=== PATIENT | female | born 1990 | race Caucasian/White ===

== ENCOUNTER 2022-08-13 17:08 | Inpatient (IN) | payer BC, SELFPAY ==
[2022-08-13] VITALS (21 sets, daily range): BP systolic 127–183; BP diastolic 67–102; PULSE 82–111; RESP 16–18; TEMP 36.6–36.9; O2SAT 96–99; BMI 37.0
[2022-08-13] MEDS: LABETALOL HCL 5 MG/ML inj IVP ×2 (18:10→18:32)
[2022-08-13] MEDS: LACTATED RINGERS 1000 ML 1,000 ML 75 ML IV (18:10)
[2022-08-13 18:17] LABS: Hematocrit 32.2 % (33.0-51.0); Mean Corpuscular HGB Conc 31 gm/dL (32-36); Mean Corpuscular Hemoglobin 25 pg (26-34); Mean Corpuscular Volume 79 fL (80-100); Platelet Count* 280 K/uL (140-440); Red Blood Count 4.06 m/uL (4.00-5.20); White Blood Count* 8.71 K/uL (4.50-11.00)
--- NOTE | 2022-08-13 18:17 | PM.OBHPLI ---
OB - H&P: HPI Labor/Induction History of Present Illness Time Seen by Provider: 18:17 Date Seen: 08/13/22 Chief Complaint: The patient is a 31 year old 4 para 3 at 37 weeks gestation by 12 week ultrasound (LMP unknown), who presents with for IOL for gestational hypertension. She is a TOLAC, has had 1 successful in 3rd (2nd was for breech position). Chief complaint: Maternity : 4 Para: 3 Indications for induction: pre-eclampsia and maternal hypertension Narrative: Janette Banks is a 31 year old female who presents for IOL for gestational hypertension. She reports she has headache today that is unrelieved by tylenol. She is very anxious about the induction, vomited this afternoon. She has not required an induction in the past. She is really hoping to avoid epidural/spinal anesthesia. Patient has had vaginal delivery with Luis Eduardo (02/07/2009) (36 weeks) Patient had for breech positioning 01/01/2017 Candace Patient had successful on 12/18/2018 or Alfonzo (unmedicated delivery) calculator: Predicted chance of vaginal after : 88.2% 95% confidence interval: 86.4%, 89.8% ? ? ?She has prediabetes, passed 3 hour glucose tolerance test. Baby measuring 89% on 34 week scan. Patient has asthma, uses albuterol prn. History of Present Dating criteria: based on 1st trimester US only care: good care Ultrasounds: normal 1st trimester US and normal mid trimester US complications: preeclampsia Medical complications: respiratory (asthma) Labs Blood type: O (+) positive Rubella: immune RPR/VDLR: nonreactive GBS status: negative HBsAG: negative Review of Systems Const: Denies: fever Eyes: Denies: blurry vision Cardio: Denies: chest pain, edema or shortness of breath with exertion Resp: Denies: shortness of breath GI: Reports: nausea, vomiting and heartburn; Denies: diarrhea or constipation : Denies: painful urination Musculo: Denies: extremity swelling Integ/Breast: Denies: rash Neuro: Reports: headache Psych: Reports: anxiety Meds Home Medications and Allergies Home Medications Medication Instructions Recorded Confirmed Type albuterol sulfate 90 mcg/actuation 1 puff inhalation PRN 05/08/22 08/13/22 History aerosol inhaler cetirizine 10 mg tablet 10 mg PO QDAY 05/08/22 08/13/22 History fluticasone propionate 100 1 inh inhalation PRN 05/08/22 08/13/22 History mcg/actuation blister powder for inhalation (Flovent Diskus) ofloxacin 0.3 % eye drops 1 drp ophthalmic (eye) BID PRN 05/08/22 05/08/22 History [id number] fum 65 mg pkg PO DAILY 05/08/22 05/08/22 History iron-folic acid 1 mg-dha 250 mg oral yolanda Allergies Allergy/AdvReac Type Severity Reaction Status Date / Time No Known Drug Allergies Allergy Verified 05/08/22 13:49 OB - H&P: Exam Physical Exam: Vital signs: Pulse BP Pulse Ox 109 H 171/94 H 99 08/13/22 17:42 08/13/22 17:42 08/13/22 17:18 Constitutional: Constitutional: no acute distress and obese Routine HEENT Exam: Head: Present atraumatic and normal inspection Routine Neck Exam: Neck: Present full ROM Detailed Neck Exam: Thyroids: Thyroid: Present normal Routine Chest/Breast/Axilla Exam: Chest wall: Absent tenderness Routine Respiratory Exam: Respiratory: Present CTA bilaterally; Absent crackles or rales Routine Cardiovascular Exam: Cardiovascular: RRR, S1 and S2 Detailed Labor and Delivery Exam: Patient Gravid: Yes Dilation (cm): 2 Effacement (%): 30 Cervix position: posterior Consistency: medium Cervical ripeness score: 3 Contraction intensity: Moderate Fetus (Single): Station: -3 Amniotic Membrane Status: intact Heart Rate Baseline: 135 Monitor Accelerations: Present Monitor Decelerations: None Time Study Statistician Variability: Moderate (6-25) Routine Psychiatric Exam: Present anxious OB - Problem Based A/P Additional Plan (1) Pre-eclampsia, severe: Status: Acute Plan: Patient presented for planned IOL for gestataional hypertension. Patient has headache, BPs in severe range. Required labetalol x 2, magnesium infusion started. Q6H labs. (2) Hx of section: Status: Acute Plan: - history of successful with 3rd . - IOL started with cook catheter (60 and 60 cc placed) - Plan to start pitocin at 12:30 (3) Term : Status: Acute Plan: - will have peds at delivery for magnesium. Delivery/Labor/Induction Plan Plan: induction Induction method: Intracervical balloon catheter
[2022-08-13 18:22] LABS: Slide Review Reflex No
[2022-08-13 18:23] LABS: Aspartate Amino Transferase* 37 U/L (12-35); Creatinine* 0.5 mg/dL (0.5-1.5); Est. Creatinine Clearance* 119.25; Estimated Glomerular Filt Rate 130 ml/min
[2022-08-13 18:24] LABS: Alanine Aminotransferase* 22 U/L (4-35); Blood Urea Nitrogen* 12 mg/dL (5-24)
[2022-08-13] MEDS: MAGNESIUM IV 4 GM/100 ML PIGGYBACK IVPB (18:27)
[2022-08-13] MEDS: ACETAMINOPHEN 500 MG TABLET 1000 MG PO (18:34)
[2022-08-13 18:36] LABS: SARS PCR* Negative SARS-CoV-2 (Negative)
[2022-08-13] MEDS: ONDANSETRON 2 MG/ML inj 4 MG IV (18:36)
[2022-08-13 18:40] LABS: INR 0.91 (0.91-1.10); Prothrombin Time 12.8 Seconds
[2022-08-13 18:41] LABS: Partial Thromboplastin Time* 29 Seconds (23-33)
[2022-08-13 18:44] LABS: Fibrinogen* 589 mg/dL (200-450)
[2022-08-13 19:03] LABS: Total Protein Urine 11 mg/dL
[2022-08-13] MEDS: CALCIUM CARBONATE 500 MG CHEW PO (19:35)
[2022-08-13] MEDS: hydrOXYzine pamoate 25 MG CAPSULE 100 MG PO (21:12)
[2022-08-14] VITALS (39 sets, daily range): BP systolic 100–176; BP diastolic 57–101; PULSE 85–106; RESP 12–18; TEMP 36.6–37.4; O2SAT 93–96
[2022-08-14 00:26] LABS: Hematocrit 30.8 % (33.0-51.0); Hemoglobin* 9.8 gm/dL (12.0-16.0); Mean Corpuscular HGB Conc 32 gm/dL (32-36); Mean Corpuscular Hemoglobin 25 pg (26-34); Mean Corpuscular Volume 80 fL (80-100); Platelet Count* 255 K/uL (140-440); Red Blood Count 3.87 m/uL (4.00-5.20); White Blood Count* 9.14 K/uL (4.50-11.00)
[2022-08-14 00:28] LABS: Slide Review Reflex No
[2022-08-14] MEDS: OXYTOCIN 30 unit/500 ML in NS 30 UNIT/500 ML BAG IVPB (00:31)
[2022-08-14 00:45] LABS: Alanine Aminotransferase* 21 U/L (4-35); Aspartate Amino Transferase* 36 U/L (12-35); Blood Urea Nitrogen* 9 mg/dL (5-24); Creatinine* 0.5 mg/dL (0.5-1.5); Est. Creatinine Clearance* 119.25; Estimated Glomerular Filt Rate 130 ml/min
[2022-08-14] MEDS: ACETAMINOPHEN 500 MG TABLET 1000 MG PO ×3 (04:44→22:50)
[2022-08-14] MEDS: LACTATED RINGERS 1000 ML 1,000 ML 68 ML IV (06:29)
[2022-08-14 06:32] LABS: Hematocrit 30.6 % (33.0-51.0); Hemoglobin* 9.5 gm/dL (12.0-16.0); Mean Corpuscular HGB Conc 31 gm/dL (32-36); Mean Corpuscular Hemoglobin 25 pg (26-34); Mean Corpuscular Volume 80 fL (80-100); Platelet Count* 245 K/uL (140-440); Red Blood Count 3.83 m/uL (4.00-5.20); White Blood Count* 9.11 K/uL (4.50-11.00)
[2022-08-14 06:34] LABS: Slide Review Reflex No
[2022-08-14 06:50] LABS: Alanine Aminotransferase* 21 U/L (4-35); Aspartate Amino Transferase* 41 U/L (12-35); Blood Urea Nitrogen* 8 mg/dL (5-24)
--- NOTE | 2022-08-14 07:03 | PM.OBPNL ---
Subjective Time Seen by Provider: 07:03 Date Seen: 08/14/22 Narrative: Patient had cook catheter overnight, fell out at 0400. Pitocin was started at 0030. Doing well. Last check 5 cm. Has headache, some blurred vision in one eye. Feels nauseated with the magnesium. Objective Vital Signs: Last Vital Signs Temp 98.3 F 08/14/22 05:32 Pulse 96 08/14/22 06:18 Resp 16 08/14/22 05:32 BP 140/89 H 08/14/22 06:18 Pulse Ox 96 08/13/22 19:07 Pelvic Exam Dilation (cm): 5 Effacement (%): 50 Contractions Monitor mode: External Contraction Frequency: 2-5 Contraction pattern: Irregular Contraction intensity: Moderate Pitocin Rate (mU/min): 7 Assessment Assessment: induction ongoing Station: -3 Status: Category l Heart Rate Baseline: 135 Penitentiary Variability: Moderate (6-25) Monitor Accelerations: Present Monitor Decelerations: None Plan Plan: - continue IOL, pitocin increasing as able - Monitor blood pressures, continue magnesium, continue q6h labs. - hemoglobin 9.5. Monitor closely for post hemorrhage. Will have cytotec and pitocin ready. Limited by asthma and hypertension. may need to consider TXA.
[2022-08-14 07:20] LABS: Creatinine* 0.5 mg/dL (0.5-1.5); Est. Creatinine Clearance* 119.25; Estimated Glomerular Filt Rate 130 ml/min
--- NOTE | 2022-08-14 10:26 | P.OBPN_ITS ---
Subjective Time Seen by Provider: 10:26 Date Seen: 08/14/22 Narrative: Patient is progressing well on pitocin. Now 7 cm. I was called to bedside, [employer]ER Dr. English alerted, OR alerted, Peds alerted for TOLAC in active labor. Headache has resolved. Feels her vision is off in one eye, magnesium infusion continues. Labs reassuring. BPs not at treatable level today. Objective Exam: Appears uncomfortable during contractions. Vital Signs: Last Vital Signs Temp 98.4 F 08/14/22 09:38 Pulse 106 H 08/14/22 10:09 Resp 18 08/14/22 09:38 BP 144/83 H 08/14/22 10:09 Pulse Ox 96 08/13/22 19:07 Pelvic Exam Dilation (cm): 7 Effacement (%): 60 Station: -1 Comments: Per nursing exam Contractions Monitor mode: External Contraction pattern: Irregular Contraction intensity: Moderate Assessment Assessment: active labor and induction ongoing Station: -1 Status: Category l Heart Rate Baseline: 135 Monitor Accelerations: Present Monitor Decelerations: None Plan Plan: - continue pitocin as is - anticipate vaginal delivery - OR, OB, Peds aware given TOLAC in active labor - Peds aware for delivery as patient is on magnesium for preeclampsia with severe features - Monitoring blood pressures, not treatable range.
[2022-08-14] MEDS: LABETALOL HCL 5 MG/ML inj IVP ×2 (11:15→13:14)
[2022-08-14] MEDS: SODIUM CHLORIDE 0.9 % (FLUSH) 10 ML SYRINGE IVF ×2 (11:18→13:15)
--- NOTE | 2022-08-14 12:14 | W.PM.OBVAGDE ---
OB Procedure Vag Delivery Mother Details Mother Details: The patient is a 31 year-old, 4, Para 3, admitted on 08/13/22 at Days gestation for induction of labor for gestational hypertension. Unfortunately, she developed blood pressure with criteria for preeclampsia with severe features upon admission and magnesium was initiated. Patient had cook catheter, then pitocin and progressed well. We did AROM of large amount of clear fluid. She progressed well. Patient was involuntarily pushing at 8-9 cm. She was at 11:45 and delivered a viable male at 1148 quickly with one push. : 4 Para: 3 Weeks Gestation: 37.1 Admission Date: 08/13/22 Additional Details Amniotic Membrane Status: intact Amniotic Membrane Rupture Date: 08/14/22 Amniotic Membrane Rupture Time: 10:54 Amniotic Membrane Fluid Description: Clear Analgesia/Anesthesia Type: None Waterbirth: No Pitcoin: Yes Intrapartal Events: Labor Induction Induction Method: Intracervical balloon catheter, per pitocin protocol and AROM Labor Onset: 09:00 Complete: 11:45 Pushin:45 Heart: heart tones during second stage had deep variable decels with recovery. Delivery Details Delivery Date: 08/14/22 Delivery Time: 11:48 Route of delivery: Infant Gender: Male Infant Viability: Alive; Heart Rate Present Position at Delivery: OA Delivery Details: Delivered over intact perineum via spontaneous vaginal delivery after . was placed on maternal abdomen.? Nuchal cord was delivered through. Cord was clamped and cut after a 20-30 second delay. Nose and mouth were bulb suctioned.? 6 lbs 10 oz. Baby was taken to warmer for further stimulation and then returned to parents. Small 1st degree perineal laceration was repaired after administration of lidocaine with 1 figure 8 stitch. Patient had ongoing trickle of bleeding, so Cytotec was given rectally in addition to pitocin that was started immediately after delivery. EBL (drape was not in place due to precipitous delivery) was 75 mls. 1 Minute Interval Total Score: 7 5 Minute Interval Total Score: 9 Additional Details Shoulder Dystocia: No Placenta Delivery Time: 11:53 Placental Delivery Description: Spontaneous Delivery repair: Vicryl Procedure Done: Global Blood Loss: 75 Laceration: Perineal - 1st Degree Episiotomy Description: None Blood Loss Measurement Type: EBL Bakri Used: No Sponge/Need Count Correct: Yes Cord Vessel Description: 3 Vessels, Nuchal Cord and Delivered through Event Summary Status: Mother and were stable after delivery. Disposition: floor
[2022-08-14 13:14] LABS: Hematocrit 33.9 % (33.0-51.0); Hemoglobin* 10.6 gm/dL (12.0-16.0); Mean Corpuscular HGB Conc 31 gm/dL (32-36); Mean Corpuscular Hemoglobin 25 pg (26-34); Mean Corpuscular Volume 80 fL (80-100); Platelet Count* 272 K/uL (140-440); Red Blood Count 4.24 m/uL (4.00-5.20); White Blood Count* 11.29 K/uL (4.50-11.00)
[2022-08-14] MEDS: IBUPROFEN 600 MG TABLET PO ×2 (13:15→20:26)
[2022-08-14 13:16] LABS: Slide Review Reflex No
[2022-08-14 13:33] LABS: Aspartate Amino Transferase* 44 U/L (12-35); Creatinine* 0.6 mg/dL (0.5-1.5); Est. Creatinine Clearance* 99.37; Estimated Glomerular Filt Rate 125 ml/min
[2022-08-14 13:34] LABS: Alanine Aminotransferase* 24 U/L (4-35); Blood Urea Nitrogen* 7 mg/dL (5-24)
[2022-08-14 13:53] LABS: Magnesium* 5.5 mg/dL (1.5-2.6)
[2022-08-14 19:30] LABS: Hematocrit 27.3 % (33.0-51.0); Hemoglobin* 8.6 gm/dL (12.0-16.0); Mean Corpuscular HGB Conc 32 gm/dL (32-36); Mean Corpuscular Hemoglobin 25 pg (26-34); Mean Corpuscular Volume 80 fL (80-100); Platelet Count* 239 K/uL (140-440); Red Blood Count 3.42 m/uL (4.00-5.20); White Blood Count* 11.33 K/uL (4.50-11.00)
[2022-08-14 19:36] LABS: Slide Review Reflex No
[2022-08-14 19:45] LABS: Alanine Aminotransferase* 22 U/L (4-35); Aspartate Amino Transferase* 37 U/L (12-35); Blood Urea Nitrogen* 8 mg/dL (5-24); Creatinine* 0.6 mg/dL (0.5-1.5); Est. Creatinine Clearance* 99.37; Estimated Glomerular Filt Rate 125 ml/min
[2022-08-14 20:10] LABS: Magnesium* 5.7 mg/dL (1.5-2.6)
[2022-08-15] VITALS (9 sets, daily range): BP systolic 115–150; BP diastolic 76–99; PULSE 81–104; RESP 16–18; TEMP 36.4–36.9; O2SAT 97–98
[2022-08-15 01:01] LABS: Hematocrit 28.5 % (33.0-51.0); Hemoglobin* 8.9 gm/dL (12.0-16.0); Mean Corpuscular HGB Conc 31 gm/dL (32-36); Mean Corpuscular Hemoglobin 25 pg (26-34); Mean Corpuscular Volume 80 fL (80-100); Platelet Count* 233 K/uL (140-440); Red Blood Count 3.56 m/uL (4.00-5.20); White Blood Count* 10.32 K/uL (4.50-11.00)
[2022-08-15 01:03] LABS: Slide Review Reflex No
[2022-08-15 01:19] LABS: Alanine Aminotransferase* 22 U/L (4-35); Aspartate Amino Transferase* 36 U/L (12-35); Creatinine* 0.5 mg/dL (0.5-1.5); Est. Creatinine Clearance* 119.25; Estimated Glomerular Filt Rate 130 ml/min
[2022-08-15 01:20] LABS: Blood Urea Nitrogen* 7 mg/dL (5-24)
[2022-08-15 05:48] LABS: Hematocrit 28.2 % (33.0-51.0); Hemoglobin* 8.7 gm/dL (12.0-16.0); Mean Corpuscular HGB Conc 31 gm/dL (32-36); Mean Corpuscular Hemoglobin 25 pg (26-34); Mean Corpuscular Volume 80 fL (80-100); Platelet Count* 225 K/uL (140-440); Red Blood Count 3.51 m/uL (4.00-5.20); White Blood Count* 10.41 K/uL (4.50-11.00)
[2022-08-15 06:03] LABS: Slide Review Reflex No
[2022-08-15 06:08] LABS: Alanine Aminotransferase* 20 U/L (4-35); Aspartate Amino Transferase* 37 U/L (12-35); Blood Urea Nitrogen* 7 mg/dL (5-24); Creatinine* 0.5 mg/dL (0.5-1.5); Est. Creatinine Clearance* 119.25; Estimated Glomerular Filt Rate 130 ml/min
[2022-08-15 06:18] LABS: Magnesium* 5.9 mg/dL (1.5-2.6)
[2022-08-15] MEDS: ACETAMINOPHEN 500 MG TABLET 1000 MG PO ×2 (07:28→13:27)
--- NOTE | 2022-08-15 07:54 | PM.OBPNVD1 ---
OB - PN:Subj Subjective Time Seen by Provider: 06:45 Date Seen: 08/15/22 Patient comments OB post-: no complaints, pain well controlled, tolerating diet and flatus present infant status: (having pain with ) feeding status: exclusively OB - PN: Obj Exam Physical Exam: Vital signs: Temp Pulse Resp BP Pulse Ox O2 Del Method 97.8 F 87 16 134/88 97 Room Air 08/15/22 04:27 08/15/22 04:08/15/22 04:27 08/15/22 04:27 08/15/22 04:08/15/22 04:27 Constitutional: Constitutional: no acute distress Routine HEENT Exam: Head: Present atraumatic ENT: Present mucous membranes moist Routine Chest/Breast/Axilla Exam: Breast: Absent tenderness or mass Routine Respiratory Exam: Respiratory: Present CTA bilaterally; Absent crackles or rales Routine Cardiovascular Exam: Cardiovascular: Present RRR, S1 and S2; Absent murmur Routine Abdominal Exam: Fundus: Present firm Routine Exam: Patient deferred: external exam Detailed Psychiatric Exam: Mood and affect: Present flat OB - PN: Obj Data Labs Labs: Laboratory Results - last 24 hr 08/14/22 08/14/22 08/14/22 13:05 19:23 19:23 WBC 11.29 H 11.33 H RBC 4.24 3.42 L Hgb 10.6 L 8.6 L Hct 33.9 27.3 L MCV 80 80 MCH 25 L 25 L MCHC 31 L 32 Plt Count 272 239 BUN 7 8 Creatinine 0.6 0.6 Estimated Creat Clear 99.37 99.37 Estimated GFR 125 125 Magnesium 5.5 H* 5.7 H* Cancelled AST 44 H 37 H ALT 24 22 08/15/22 08/15/22 00:55 05:30 WBC 10.32 10.41 RBC 3.56 L 3.51 L Hgb 8.9 L 8.7 L Hct 28.5 L 28.2 L MCV 80 80 MCH 25 L 25 L MCHC 31 L 31 L Plt Count 233 225 BUN 7 7 Creatinine 0.5 0.5 Estimated Creat Clear 119.25 119.25 Estimated GFR 130 130 Magnesium 6.0 H* 5.9 H* AST 36 H 37 H ALT 22 20 OB - PN: A/P Vaginal Delivery Assessment and Plan (1) Pre-eclampsia, severe: Status: Acute Assessment and Plan: - blood pressures and labs have been reassuring - continue magnesium until 24 hours after delivery - headache and vision changes have resolved, will monitor - likely able to discharge home tomorrow. (2) Term : Status: Acute (3) Vaginal after : Problem details: 1st preg vaginal. 2nd for breech. 3rd and 4th Status: Acute Assessment and Plan: - bleeding appropriate, no concerns Plan - continue to support breast feeding - continue routine cares - will likely discharge to home tomorrow. Plan day: 1 Plan: routine care
[2022-08-15] MEDS: DOCUSATE SODIUM 100 MG CAPSULE PO (10:48)
[2022-08-15] MEDS: LABETALOL HCL 100 MG TABLET PO (21:42)
[2022-08-16] VITALS (8 sets, daily range): BP systolic 133–152; BP diastolic 84–103; PULSE 57–112; RESP 14–18; TEMP 36.6–36.7; O2SAT 94–97
[2022-08-16] MEDS: ACETAMINOPHEN 500 MG TABLET 1000 MG PO ×2 (09:16→16:11)
[2022-08-16] MEDS: DOCUSATE SODIUM 100 MG CAPSULE PO (09:16)
[2022-08-16] MEDS: LABETALOL HCL 100 MG TABLET PO ×2 (09:17→11:05)
--- NOTE | 2022-08-16 11:02 | P.OBPN_ITS ---
OB - PN:Subj Subjective Time Seen by Provider: 11:02 Date Seen: 08/16/22 Interval history: pt reports feeling tired. Is and reports difficulty with infant latching. Wonders why her milk is not in yet. Breastfed prior pregnancies--most recent last for 4 months and then pumped until a year. We discussed and colostrum and how body typically works with milk coming in. All ?'s answered. healthcare network consultant came by as we were finishing. Pt reports she is ambulating, voiding, stooling and eating without difficulty. Reports her lochia is mild. She reports mild headache off and on, currently gone. says hx headaches whole 'normal for me' and felt like her typical headache. No vision changes. pt has noticed mild sore throat this morning. Mentions she thinks she might be starting to come down with something. Discussed viral illnesses and concerning s/s and specifically in relation to baby. will monitor for now. Patient comments OB post-: no complaints OB - PN: Obj Exam Physical Exam: Vital signs: Temp Pulse Resp BP Pulse Ox O2 Del Method 97.9 F 112 H 14 145/84 H 94 Room Air 08/16/22 09:16 08/16/22 09:16 08/16/22 04:30 08/16/22 09:16 08/16/22 04:30 08/16/22 04:30 Constitutional: Constitutional: no acute distress Routine HEENT Exam: Head: Present normal inspection Eye: Present normal appearance ENT: Present mucous membranes moist Routine Abdominal Exam: Fundus: Present firm OB - PN: A/P Vaginal Delivery Assessment and Plan (1) Pre-eclampsia, severe: Status: Acute Assessment and Plan: Off magnesium since 24 hours. BP' s elevated last night so started on labetalol 1000mg bid. BP still elevated this morning at 145/84. Will give additional labetalol 100mg now and increase labetalol to 200mg bid. Discussed with pt importance good BP control for at minimum 12-24 hours prior to d/c. Therefore, unable to d/c home today. Discussed reasons why and patient noted understanding. We will continue to monitor bp and adjust meds as needed. Discussed with nursing also. (2) Term : Status: Acute (3) Vaginal after : Problem details: 1st preg vaginal. 2nd for breech. 3rd and 4th Status: Acute
[2022-08-16] MEDS: NIFEdipine 30 MG TAB.ER.24 PO (17:04)
[2022-08-16] MEDS: LABETALOL HCL 100 MG TABLET 200 MG PO (20:40)
[2022-08-16] MEDS: IBUPROFEN 600 MG TABLET PO (22:54)
[2022-08-17] VITALS (10 sets, daily range): BP systolic 122–145; BP diastolic 77–92; PULSE 98–111; RESP 14–16; TEMP 36.2–36.9; O2SAT 95–97
[2022-08-17] MEDS: LABETALOL HCL 100 MG TABLET 200 MG PO ×2 (09:08→20:37)
[2022-08-17] MEDS: DOCUSATE SODIUM 100 MG CAPSULE PO (09:08)
[2022-08-17] MEDS: NIFEdipine 30 MG TAB.ER.24 PO (09:08)
--- NOTE | 2022-08-17 09:44 | PM.OBPNVD1 ---
OB - PN:Subj Subjective Time Seen by Provider: 08:50 Date Seen: 08/17/22 Interval history: pt reports she is feeling better today. Sore throat and runny nose improving. she started coughing yesterday--last night had posttussive emesis about 1-1.5 hours after labetalol given. Pt says cough improving today. No headache yesterday. woke with little headache today but better now. Feels like improving and her milk is coming in. Lochia mild. no significant pain. Ambulating without lightheadedness or dizziness. Voiding and stooling. Tolerating orals. pt would prefer to go home as soon as able. infant status: feeding status: exclusively OB - PN: Obj Exam Physical Exam: Vital signs: Temp Pulse Resp BP Pulse Ox O2 Del Method 97.7 F 98 14 134/90 H 96 Room Air 08/17/22 08:32 08/17/22 08:32 08/17/22 08:32 08/17/22 08:32 08/17/22 08:32 08/17/22 08:32 Constitutional: Constitutional: no acute distress and cooperative Routine HEENT Exam: Head: Present normal inspection Eye: Present normal appearance ENT: Present mucous membranes moist Routine Abdominal Exam: Fundus: Present firm (at umbilicus) OB - PN: Obj Data Labs Labs: Laboratory Results - last 24 hr 08/13/22 18:04 Crossmatch (AHG) See Detail OB - PN: A/P Vaginal Delivery Assessment and Plan (1) Pre-eclampsia, severe: Status: Acute Assessment and Plan: s/p severe preeclampsia by BP criteria requiring Magnesium, off magnesium since 24 hours -Labetolol titrated up to 200mg bid yesterday. Unfortunately she vomited after last evenings dose and unclear how much absorbed. BP's overnight were < 140/90, this mornings bp just prior to morning labetalol was 134/90. Discussed with pt importance well controlled bp at minimum 12-24 hours prior to d/c with goal < 140/85. reviewed risks of uncontrolled bp. pt eager to go home tonight if possible. Discussed if BP remains < 140/85 throughout today, could likely d/c late tonight. However, if bp's at or above goal, will need stay until meets this goal for 12-24 hours. pt reported understanding and is in agreement. All ?'s answered. Nursing will update me later today. (2) Term : Status: Acute (3) Vaginal after : Problem details: 1st preg vaginal. 2nd for breech. 3rd and 4th Status: Acute
[2022-08-17] MEDS: IBUPROFEN 600 MG TABLET PO (11:07)
[2022-08-17] MEDS: ACETAMINOPHEN 500 MG TABLET 1000 MG PO (12:11)
[2022-08-18 01:29] VITALS: BP 107/71; PULSE 98; RESP 16; TEMP 36.9
[2022-08-18 05:45] VITALS: BP 120/83; PULSE 88
[2022-08-18] MEDS: NIFEdipine 30 MG TAB.ER.24 PO (09:00)
[2022-08-18] MEDS: DOCUSATE SODIUM 100 MG CAPSULE PO (09:01)
[2022-08-18] MEDS: LABETALOL HCL 100 MG TABLET 300 MG PO (09:01)
[2022-08-18 10:05] VITALS: BP 119/81; PULSE 82; RESP 18; TEMP 36.9; O2SAT 96
--- NOTE | 2022-08-18 10:43 | PM.OBDSVD1 ---
DS: Providers Provider Time Seen by Provider: 10:45 Date Seen: 08/18/22 Date of admission: 08/13/22 17:08 Primary care physician: Dr Jb Alicia Admitting Clinician: Nicol Muhammad MD Attending Physician on discharge: Nicol Muhammad MD Date of Discharge: 08/18/22 DS: Diagnosis Discharge Diagnosis (1) Pre-eclampsia, severe: Status: Acute Problem details: requiring magnesium. started on labetalol and nifedipine XR (2) Vaginal after : Status: Acute Problem details: 1st preg vaginal. 2nd for breech. 3rd and 4th Exam Const: Vital Signs, click to edit/add: Vital Signs - 24 hr 08/17/22 20:25 08/17/22 22:32 08/18/22 01:29 Temperature 98.4 F 98.4 F Pulse Rate [Pulse Oximeter] 100 98 Respiratory Rate 14 16 Blood Pressure [Ri ght Arm] 141/77 H 142/91 H 107/71 Pulse Oximetry 97 Oxygen Delivery Me thod Room Air Room Air 08/17/22 11:12 08/17/22 12:07 08/17/22 15:58 Temperature 97.2 F L 97.2 F L Pulse Rate [Pulse Oximeter] 98 100 Respiratory Rate 14 14 Blood Pressure [Ri ght Arm] 122/85 133/84 Pulse Oximetry 96 97 Oxygen Delivery Me thod Room Air Room Air 08/17/22 20:30 08/17/22 22:47 08/18/22 05:45 Temperature Pulse Rate [Pulse Oximeter] 88 Respiratory Rate Blood Pressure [Ri ght Arm] 145/92 H 128/85 120/83 Pulse Oximetry Oxygen Delivery Me thod 08/18/22 10:05 Temperature 98.4 F Pulse Rate [Pulse Oximeter] 82 Respiratory Rate 18 Blood Pressure [Ri ght Arm] 119/81 Pulse Oximetry 96 Oxygen Delivery Me thod Room Air Documenting provider has reviewed patient's vital signs: yes Common normals: no apparent distress and healthy appearing General appearance: cooperative and comfortable : Uterus: U/1 and firm Extremity: Common normals: no pedal edema Psych: Common normals: mental status grossly normal OB - DS: Summary Hospital Course Hospital Course: The patient is a 31 year old G 4 P 3 at 37 weeks gestation that was admitted to the Center on 08/13/22 for induction due to gestational hypertension but then found to meet criteria for severe preeclampsia on admit due to BP criteria. She had a successful delivery. She delivered a viable male . She is breast feeding. the patient did develop a mild cold which is improving she reports. She had negative covid test on admit. Her bp's were elevated and she required staying additional time as meds were adjusted to get bp under control. Of note, she does have history of asthma but infrequently needs albuterol and does not use flovent regularly. No breathing difficulties. Today she is eager to go home and reports feeling well. Lochia mild. Ambulating, voiding and stooling without problem. Peripartum Data delivery method: Laceration description: Perineal - 1st Degree [place] Infant Gender: Male Discharge Plan: Home Status at Discharge Functional status at discharge: independent ambulation Time Spent with Patient Time attestation: Total time spent providing and/or coordinating discharge services: Time spent: Less than 30 minutes Discharge Plan Discharge Disposition: Home, Self-Care Date of Admission: 08/13/22 17:08 Attending Provider on Discharge: Nancy Boyd Primary Care Provider: Provider,Not a Local Condition: Stable Anticipated Discharge Date/Time: 08/18/22 10:52 Discharge Medications: New nifedipine 30 mg Tablet Extended Release 24hr 30 mg PO DAILY Qty: 30 0RF acetaminophen 500 mg Tablet 1,000 mg PO Q6H PRNQty: 40 0RF docusate sodium 100 mg Capsule 100 mg PO DAILY Qty: 30 0RF ibuprofen 600 mg Tablet 600 mg PO Q6H PRNQty: 30 0RF labetalol 100 mg Tablet 300 mg PO BID Qty: 180 0RF ferrous sulfate 325 mg (65 mg iron) tablet,delayed release (DR/EC) 325 mg PO DAILY Qty: 30 0RF cholecalciferol (vitamin D3) [Vitamin D3] 50 mcg (2,000 unit) tablet 100 mcg PO DAILY Qty: 180 3RF Continued albuterol sulfate 90 mcg/actuation HFA aerosol inhaler 1 puff inhalation PRN Patient Comments: INHALE 1-2 PUFFS BY MOUTH EVERY 4 HOURS IF NEEDED FOR SHORTNESS OF BREATH OR WHEEZING Flovent Diskus 100 mcg/actuation blister with device 1 inh inhalation PRN Patient Comments: INHALE 1 PUFF BY MOUTH 2 TIMES DAILY cetirizine 10 mg tablet 10 mg PO QDAY Patient Comments: TAKE ONE TABLET BY MOUTH EVERY DAY vit 60-[id number]-[id number]-dha 65-1-250 mg combo pack 1 pkg PO DAILY Hold Instructions: pt. reports not been taking Discharge Orders: Discharge Order (Routine); Ordered 08/18/22 Ordered By: Nancy Boyd Patient Education: Preeclampsia During (DC), OB Vaginal/Breast Feeding Activity Level: Activity as Tolerated Activity Detail: Pelvic rest x 6 weeks Discharge Diet: Heart Healthy (2 gm sodium, low fat) Follow Up Appointments: Provider,Not a Local [Primary Care Provider] - Nicol Muhammad MD [Staff Physician] - (Friday with Dr Muhammad 10am, bring bp log. come 10min early to get baby checked in as well.) Forms: MyHealth Info Instructions
== END 2022-08-18 11:40 | disposition home or self-care (01) | DRG 560 ==
PROVIDERS: Admitting Provider Family Medicine; Visit Provider Family Medicine
DX: O14.14 Severe pre-eclampsia complicating childbirth (principal); O34.211 Maternal care for low transverse scar from previous cesarean delivery; O70.0 First degree perineal laceration during delivery; J45.909 Unspecified asthma, uncomplicated; Z37.0 Single live birth; Z3A.37 37 weeks gestation of pregnancy
CPT/HCPCS: 36415; 59200; 76815; 82565; 82570; 83735; 84156; 84450; 84460; 84520; 85018; 85025; 85027; 85384; 85610; 85730; 86850; 86900; 86901; 86922; 87635; 88307; A9270; C1726; J2405; J3475; J7120